=== PATIENT | female | born 1965 | race Caucasian/White ===

== ENCOUNTER 2024-03-24 17:39 | Emergency (ER) | payer OTHER ==
[~2024-03-24] VITALS: Ht 152.4 cm; Wt 72.1 kg
[2024-03-24 17:50] VITALS: TEMP 98.2
[2024-03-24 18:23] LABS: BASOPHILS # (AUTO) 0.1 (0.0-0.1); BASOPHILS % 0.9 % (0.0-1.0); EOSINOPHILS # (AUTO) 0.2 (0.0-0.4); EOSINOPHILS % 2.3 % (0.0-6.0); HEMATOCRIT 34.2 % (34.2-44.1); HEMOGLOBIN 11.1 g/dL (12.0-16.0); LYMPHOCYTES # (AUTO) 2.9 (1.0-3.2); LYMPHOCYTES % 37.4 % (18.0-39.1); MEAN CORPUSCULAR HEMOGLOBIN 28.2 pg (28-32); MEAN CORPUSCULAR HGB CONC 32.5 g/dL (31-35); MEAN CORPUSCULAR VOLUME 86.8 fL (81-99); MONOCYTES # (AUTO) 0.3 (0.2-0.8); MONOCYTES % 4.4 % (4.4-11.3); NEUTROPHILS # (AUTO) 4.3 (2.1-6.9); NEUTROPHILS % 54.6 % (38.7-80.0); PLATELET COUNT 131 x10e3/uL (140-360); RED BLOOD COUNT 3.94 x10e6/uL (3.6-5.1); RED CELL DISTRIBUTION WIDTH 15.2 % (11.7-14.4); WHITE BLOOD COUNT 7.78 x10e3/uL (4.8-10.8)
[2024-03-24 18:47] LABS: ALBUMIN/GLOBULIN RATIO 0.8 (0.8-2.0); ANION GAP 16.8 mmol/L (8-16); BILIRUBIN,TOTAL 0.5 mg/dL (0.2-1.2); CALCIUM 9.2 mg/dL (8.4-10.2); CREATININE, SERUM 0.77 mg/dL (0.57-1.11); TOTAL PROTEIN 9.1 g/dL (6.5-8.1)
[2024-03-24 18:50] LABS: POTASSIUM 5.8 mmol/L (3.5-5.1)
[2024-03-24 18:53] LABS: TROPONIN I 0.001 ng/mL (0-0.300)
[2024-03-24] MEDS: ASPIRIN 81 MG CHEW TAB PO ONE (19:22)
[2024-03-24] MEDS: KETOROLAC TROMETHAMINE 30 MG/ML VIAL IV STA (19:25)
[2024-03-24] MEDS: ONDANSETRON HCL INJ 2MG/ML 2ML 2 MG/ML VIAL IV STA (19:25)
[2024-03-24] MEDS: FAMOTIDINE 20 MG/2 ML VIAL IV STA (19:25)
[2024-03-24 19:45] VITALS: PULSE 66; RESP 16
[2024-03-24 20:06] LABS: ANION GAP 13.4 mmol/L (8-16); BLOOD UREA NITROGEN 15 mg/dL (7-26); BUN/CREATININE RATIO 21 (6-25); CALCIUM 8.8 mg/dL (8.4-10.2); CARBON DIOXIDE 22 mmol/L (22-29); CHLORIDE 108 mmol/L (98-107); CREATINE KINASE 53 IU/L (29-168); CREATININE, SERUM 0.72 mg/dL (0.57-1.11); EST GLOMERULAR FILTRATION RATE 98 ML/MIN (>=60); GLUCOSE 144 mg/dL (74-118); SODIUM 140 mmol/L (136-145)
[2024-03-24 20:23] LABS: POTASSIUM 3.4 mmol/L (3.5-5.1); TROPONIN I < 0.001 ng/mL (0-0.300)
[2024-03-24] MEDS ORDERED: KETOROLAC TROME10 MG PO (20:30)
[2024-03-24] MEDS ORDERED: PEPCID20 MG PO (20:30)
[2024-03-24 20:51] VITALS: BP 106/67; PULSE 60; RESP 21; TEMP 98; O2SAT 99
== END 2024-03-24 20:52 | disposition home or self-care (01) ==
LOC: ER 17:50
DX: R06.02 Shortness of breath (principal); R07.89 Other chest pain; I10 Essential (primary) hypertension; E11.65 Type 2 diabetes mellitus with hyperglycemia
CPT/HCPCS: 36415; 71045; 80048; 80053; 82550; 83690; 83880; 84484; 85025; 93005; 99284; J1885; J2405